=== PATIENT | male | born 2000 | race African-American/Black ===

== ENCOUNTER 2022-05-18 14:32 | Emergency (ER) | payer SELFPAY ==
[~2022-05-18] VITALS: Ht 177 cm; Wt 71.0 kg
[~2022-05-18 14:32] MED LIST: SULF1TAB38 PO
[2022-05-18 14:38] VITALS: BP 152/104
--- NOTE | 2022-05-18 14:55 | ED Upper Extremity ---
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 NO OTHER C/O VOICED. Source: patient Exam Limitations: no limitations (MARKUS PARKER) History of Present Illness Date Seen by Provider: May 18, 2022 Time Seen by Provider: 14:49 Initial Comments Patient is a 21 year old male who presents to the ER with CC of left hand pain onset 30-45 mins ago. He reports he was "playing around with some friends" and accidentally punched through a wall with his left hand. States he now has pain in his left knuckles and fingers, especially in his left pinky finger. He rates the pain a 9/10 at present and is unable to move it much. States it radiates into the left wrist at times. He is not up to date on his tetanus. Denies any other complaints at this time. Location Injury Occurred: left hand Onset: just prior to arrival Pain/Injury Location: left hand (MARKUS PARKER) Allergies and Home Medications Allergies Coded Allergies: No Known Drug Allergies (Unverified , 04/06/11) Patient Home Medication List Home Medication List Reviewed: Yes (MARKUS PARKER) Trimethoprim/Sulfamethoxazole (Bactrim Ds) 1 Ea Tablet, 1 EA PO BID Prescribed by: DARRYL DAIGLE on 04/06/11 7885 Review of Systems Constitutional: no symptoms reported Musculoskeletal: joint pain (tenderness over left metacarpals and proximal interphalangeal joint of left 5th digit), joint swelling (left metacarpals and proximal interphalangeal joint of left 5th digit ), other (abrasions of the left dorsal hand ) (MARKUS PARKER) Physical Exam Vital Signs Vital Signs - First Documented 05/18/22 14:38 Temp 36.6 Pulse 98 Resp 18 B/P (MAP) 152/104 (120) Pulse Ox 98 O2 Delivery Room Air (INES ANGELA MD) Vital Signs Capillary Refill : Less Than 3 Seconds (MARKUS PARKER) Height, Weight, BMI Height: '" Weight: lbs. oz. kg; 22.00 BMI Method: General Appearance: WD/WN, no apparent distress Shoulder: normal inspection, non-tender Elbow/Forearm: normal inspection, non-tender Wrist: Yes normal inspection, Yes non-tender, Yes limited ROM (unable to perform flexion or extension ) Hand: abrasions (to the dorsal left hand ), bone tenderness (over the left metacarpals and proximal interphalangeal joint of left 5th digit), deformity (lateral deviation of the left 5th digit), limited ROM (to left fingers and wrist ), swelling (over the left metacarpals and proximal interphalangeal joint of left 5th digit) Neurologic/Tendon: other (normal BUE sensation) (SUBBARAO,MARKUS) Progress/Results/Core Measures Results/Orders My Orders Orders - INES ANGELA MD Hand, Left, 3 Views (05/18/22 14:55) Ketorolac Injection (Toradol Injection) (05/18/22 15:00) Dipht,Pertuss(Acell),Tet Adult (Boostrix (05/18/22 15:00) Bupivacaine 0.25% 30 Ml Inj (Sensorcaine (05/18/22 15:15) Lidocaine 1% Inj 20 Ml (Xylocaine 1% Inj (05/18/22 15:15) Bupivacaine 0.5% Injection (Sensorcaine (05/18/22 15:20) (INES ANGELA MD) Medications Given in ED Current Medications Medications Dose Ordered Sig/Hilary Route Start Time Stop Time Status Last Admin Dose Admin Diphtheria/ Tetanus/Acell Pertussis 0.5 ml ONCE ONCE IM 05/18/22 15:00 05/18/22 15:01 DC 05/18/22 15:04 0.5 ML Ketorolac Tromethamine 60 mg ONCE ONCE IM 05/18/22 15:00 05/18/22 15:01 DC 05/18/22 15:02 60 MG (INES ANGELA MD) Vital Signs/I&O 05/18/22 14:38 Temp 36.6 Pulse 98 Resp 18 B/P (MAP) 152/104 (120) Pulse Ox 98 O2 Delivery Room Air (INES ANGELA MD) Blood Pressure Mean: 120 Progress Progress Note : Time: 15:31 Progress Note Patient seen and examined, 21-year-old who punched a wall. Evaluation today includes physical exam. Patient is neurovascularly intact is obvious swelling and deformity over the fifth metacarpal distal aspect with limited range of motion of the third fourth and fifth digits. 2 small/tiny abrasions on the dorsum of the hand. Tetanus updated. X-ray reveals fracture of the distal portion of the fifth metacarpal with 90 degree angulation towards the palm of the distal fragment. Patient had hematoma block with 2.5 cc of half percent Sensorcaine and 2.5 cc of plain 1% lidocaine. A total of 4 cc was used. Gentle pressure was used to reduce the fracture fragment. Patient was placed in an ulnar gutter splint. Referred to orthopedics. I reviewed splint care with the patient as well as pain management. Recommended calling orthopedic clinic on Friday. Patient verbalized understanding. All questions are sought and answered. Patient is stable for discharge (INSE ANGELA MD) Departure Impression Primary Impression: Boxers fracture Qualified Codes: S62.339A - Displaced fracture of neck of unspecified metacarpal bone, initial encounter for closed fracture Disposition: HOME, SELF-CARE Condition: Stable Departure-Patient Inst. Decision time for Depature: 15:35 (INES ANGELA MD) Referrals: NO,LOCAL PHYSICIAN (PCP) Primary Care Physician DENISE CALVILLO MD, MICHAEL P MD Patient Instructions: Hand Fracture ED, Splint Care ED Add. Discharge Instructions: Please try and keep the splint on until you follow-up with the bone doctor. Call Friday for a follow-up appointment next week. If you get any numbness swelling tingling or pain to the fingers of the hand you can loosen the Chad wrap on the splint. Apply an ice pack to the palm of the hand at the base of the pinky finger 20 minutes at a time 3-4 times daily. Keep the left hand elevated to help reduce swelling. I have given you some hydrocodone. Take 1 tablet with 1 extra strength Tylenol every 6 hours as needed for pain. You can alternate this with gtoo-fda-lzcexye ibuprofen, 3 tablets which is 600 mg every 6 hours with food for pain as well. Return to the emergency department for any new, concerning or emergent complaints. Scripts Hydrocodone/Acetaminophen (Hydrocodone-Acetamin 5-325 mg) 5 Mg-325 Mg Tablet 1 TAB PO Q6H PRN for PAIN-MODERATE (5-7), #8 TAB Prov: INES ANGELA MD 05/18/22 Verification and Attestation of Medical Student E/M Service A medical student performed and documented this service in my presence. I r eviewed and verified all information documented by the medical student and made modifications to such information, when appropriate. I personally performed the physical exam and medical decision making. Ines Angela, May 18, 2022,15:38 (INES ANGELA MD) Copy Copies To 1: DENISE CALVILLO MD; CECI PLUMMER MDCHANDLER REGIONAL MEDICAL CENTERMARKUS May 18, 2022 14:55 INES ANGELA MD May 18, 2022 15:36
[2022-05-18] MEDS ORDERED: KETOROLAC 60 MG/2 ML VIAL IM ONE (15:00)
[2022-05-18] MEDS ORDERED: TETANUS,DIPTH,PERTUSS P/F (BOOSTRIX) 0.5 ML VIAL IM ONE (15:00)
[2022-05-18] MEDS ORDERED: LIDOCAINE 1% INJ 20 ML VIAL INJ ONE (15:15)
[2022-05-18] MEDS ORDERED: BUPIVACAINE 0.25% 30 ML (SENSORCAINE) VIAL INJ ONE (15:15)
[2022-05-18] MEDS ORDERED: BUPIVACAINE 0.5% 30 ML (SENSORCAINE) VIAL ONE (15:20)
[2022-05-18] MEDS ORDERED: ACHD5005 PO (15:37)
--- NOTE | 2022-05-18 15:43 | Diagnostic Imaging Report ---
INDICATION: Left hand pain and deformity. TIME OF EXAM: 2:57 PM. FINDINGS: Three views of the left hand demonstrate fracture of the distal 5th metacarpal. There is volar regulation of the distal fracture fragment. Remaining metacarpals are intact. Phalanges are intact. Carpus unremarkable. IMPRESSION: Distal 5th metacarpal fracture with volar angulation, as described. Dictated by: Dictated on workstation # [id number]
== END 2022-05-18 15:53 | disposition home or self-care (01) ==
LOC: EDUNIT# 14:32 → ER 14:36
DX: S62.637A Displaced fracture of distal phalanx of left little finger, initial encounter for closed fracture (principal); W22.8XXA Striking against or struck by other objects, initial encounter
CPT/HCPCS: 26605; 29125; 73130; 90715

== ENCOUNTER → 2023-01-22 | Outpatient (CLI) | payer BC ==
[~2023-01-22] MED LIST changes: +ACHD5005 PO
--- NOTE | 2023-01-22 11:35 | Diagnostic Imaging Report ---
EXAMINATION: Left shoulder 2 or more views HISTORY: Shoulder pain. COMPARISON: None available. FINDINGS: The alignment is normal. No fracture is seen. The acromioclavicular and glenohumeral joint spaces are normal. IMPRESSION: 1. No fracture. Dictated by: Dictated on workstation # [id number]
== END ==
LOC: ORTHO 10:34
PROVIDERS: ATTEND Orthopaedic Surgery
DX: M25.512 Pain in left shoulder (principal)
CPT/HCPCS: 73030; G0463; 99203

== ENCOUNTER → 2023-02-06 | Outpatient (CLI) | payer BC ==
[~2023-02-06] VITALS: Ht 182.2 cm; Wt 71.0 kg
[~2023-02-06] MED LIST changes: +GADOTERATE 0.5 MMOL/ML (CLARISCAN) 15 ML VIAL IV ONE; +IOHEXOL 240 MGI/ML 50 ML (OMNIPAQUE) VIAL IV ONE; +LIDOCAINE 1% INJ 10 ML VIAL INJ ONE; +LIDOCAINE 1% INJ 10 ML VIAL ONE
--- NOTE | 2023-02-06 16:03 | Diagnostic Imaging Report ---
INDICATION: Left shoulder injury and pain. EXAMINATION: Patient presents for contrast injection prior to MRI. PROCEDURE: Patient was brought to the procedure room and placed on table in supine position. Left shoulder was prepped and draped in the usual sterile fashion. Small amount of 1% lidocaine was utilized for local anesthesia. 22-gauge needle was advanced into the left shoulder and placed with its tip at the rotator interval. A 15 mm solution of iodinated contrast, normal saline and gadolinium was injected under fluoroscopic observation. 15 seconds of fluoroscopic time was utilized. Reference air kerma is 29.0 mGy. Single image was obtained. The patient tolerated the procedure well and was sent to MRI in satisfactory condition. IMPRESSION: Successful left shoulder injection of gadolinium contrast solution, using fluoroscopy. Dictated by: Dictated on workstation # [id number]
--- NOTE | 2023-02-06 18:33 | Diagnostic Imaging Report ---
EXAMINATION: MRI of the left shoulder with contrast, 02/06/2023. TECHNIQUE: Multiplanar, multisequence contrast-enhanced MRI of the left upper extremity was accomplished. INDICATION: Injury playing soccer. Pain and popping sensation. FINDINGS: There may be a very small partial-thickness articular-sided tear of the far anterior supraspinatus tendon. Remaining supraspinatus tendon is unremarkable. Infraspinatus tendon is intact. Subscapularis tendon is intact. Long head of the biceps tendon is intact and lies in the bicipital groove. Along the anterior inferior labrum, there is some undermining of contrast suggesting a small tear; correlate with patient's symptoms. No displaced labral tear is appreciated. The muscle volume is preserved. Visualized axilla is unremarkable. IMPRESSION: 1. Possible tiny partial articular-sided tear of the far anterior supraspinatus tendon with the infraspinatus tendon and subscapularis tendon intact. 2. Biceps tendon intact. 3. Possible nondisplaced tear of the inferior labrum as detailed above. Correlate with symptoms. Dictated on workstation # [id number]
== END ==
LOC: RAD 13:46
PROVIDERS: ATTEND Orthopaedic Surgery
DX: M25.312 Other instability, left shoulder (principal)
CPT/HCPCS: 23350; 73040; 73222